=== PATIENT | female | born 1950 | race Two or more races ===

== ENCOUNTER 2024-04-13 06:45 | Inpatient (IN) | payer MEDICARE, OTHER ==
[~2024-04-13] VITALS: Ht 147.3 cm; Wt 75.3 kg
[2024-04-13] MEDS ORDERED: VANCOMYCIN 1000 MG VIAL ONE (06:51)
[2024-04-13] MEDS ORDERED: BUPIVACAINE/EPI PF 0.25% 10 ML VIAL IJ ONE ×2 (06:51→07:27)
[2024-04-13] MEDS ORDERED: FENTANYL CITRATE 250 MCG/5 ML AMPUL ONE (07:46)
[2024-04-13] MEDS ORDERED: MIDAZOLAM HCL 2 MG/2 ML VIAL ONE (07:46)
[2024-04-13] MEDS ORDERED: ROPIVACAINE HCL/PF 0.5% ( 5 MG/ML ) , 20 ML VIAL ONE (09:52)
[2024-04-13] MEDS ORDERED: DEXAMETHASONE SOD PHOSPHATE 10 MG INJ ONE (09:53)
[2024-04-13] MEDS ORDERED: BUPIVACAINE 0.25% 30 ML VIAL ONE (09:53)
[2024-04-13] MEDS ORDERED: PROPOFOL 200 MG/20 ML BOTTLE ONE (10:05)
[2024-04-13] MEDS ORDERED: TRANEXAMIC ACID 1,000 MG/10 ML VIAL ONE (10:29)
[2024-04-13] MEDS ORDERED: HYDROMORPHONE 1 MG/1 ML DISP.SYRIN ONE ×2 (12:23→12:37)
[2024-04-13] MEDS: HYDROMORPHONE 1 MG/1 ML DISP.SYRIN IV PRN (12:27)
[2024-04-13] MEDS ORDERED: ACETAMINOPHEN 500 MG TABLET ONE (12:57)
[2024-04-13] MEDS ORDERED: FENTANYL CITRATE 100 MCG/2 ML AMPUL ONE (12:58)
[2024-04-13] MEDS ORDERED: ONDANSETRON 4 MG/2 ML VIAL ONE (12:59)
[2024-04-13] MEDS: ONDANSETRON 4 MG/2 ML VIAL IV PRN (13:05)
[2024-04-13] MEDS: FENTANYL CITRATE 100 MCG/2 ML AMPUL IV PRN (13:05)
[2024-04-13] MEDS: ACETAMINOPHEN 500 MG TABLET PO ONE (13:06)
[2024-04-13] MEDS ORDERED: ACYC400T19 PO (14:58)
[2024-04-13 14:59] VITALS: BP 121/68; TEMP 98.4; O2SAT 100
[2024-04-13] MEDS: IV D5W-0.45% NS +20 KCL 1,000 ML IV PRN (15:00)
[2024-04-13] MEDS ORDERED: AZEL6DRO5 EACHEYE (15:01)
[2024-04-13] MEDS ORDERED: AZEL137S7 BNOSTRILS (15:01)
[2024-04-13] MEDS ORDERED: ATOR40TA PO (15:01)
[2024-04-13] MEDS ORDERED: ALBU8HFA4 INH (15:01)
[2024-04-13] MEDS ORDERED: BIOT5TAB PO (15:01)
[2024-04-13] MEDS ORDERED: BISO10TA16 PO (15:02)
[2024-04-13] MEDS ORDERED: CETI-232 PO (15:03)
[2024-04-13] MEDS ORDERED: CLOB118S3 TP (15:04)
[2024-04-13] MEDS ORDERED: CYCL5TAB PO (15:06)
[2024-04-13] MEDS ORDERED: CHOL10005 PO (15:09)
[2024-04-13] MEDS ORDERED: FLUT16SP16 NS (15:11)
[2024-04-13] MEDS ORDERED: FLUT1DIS28 IH (15:11)
[2024-04-13] MEDS ORDERED: GABA300C PO (15:15)
[2024-04-13] MEDS ORDERED: ICOS1CAP PO (15:16)
[2024-04-13] MEDS ORDERED: IPRA42SP NS (15:17)
[2024-04-13] MEDS ORDERED: LEVO88TA5 PO (15:21)
[2024-04-13] MEDS ORDERED: MAGN400T26 PO (15:22)
[2024-04-13] MEDS ORDERED: MELA3CAP2 PO (15:23)
[2024-04-13] MEDS ORDERED: NAPR-1009 PO (15:24)
[2024-04-13] MEDS ORDERED: METF-495 PO (15:24)
[2024-04-13] MEDS ORDERED: OLME1TAB34 PO (15:25)
[2024-04-13] MEDS ORDERED: HCTZ PO SCH (16:00)
[2024-04-13] MEDS ORDERED: ONDANSETRON 4 MG/2 ML VIAL IV PRN (16:00)
[2024-04-13] MEDS ORDERED: Medication Not On Formulary EA (Biotin 5 MG) PO SCH (16:00)
[2024-04-13] MEDS ORDERED: AMLODIPINE PO SCH (16:00)
[2024-04-13] MEDS ORDERED: ACETAMINOPHEN 325 MG TABLET PO PRN (16:00)
[2024-04-13] MEDS ORDERED: OLMESARTAN MED PO SCH (16:00)
[2024-04-13] MEDS ORDERED: ALBUTEROL SULFATE 8 GM HFA.AER.AD INH PRN (16:00)
[2024-04-13] MEDS ORDERED: IPRATROPIUM BROMIDE NASAL 15 ML BOTTLE 42 MCG/SPRAY NS PRN (16:00)
[2024-04-13] MEDS ORDERED: MAGNESIUM HYDROXIDE 30 ML LIQUID UDC PO PRN (16:00)
[2024-04-13 16:04] LABS: BASOPHILS # (AUTO) 0.1 K/UL (0.0-0.2); BASOPHILS % (AUTO) 1.2 % (0.0-2.0); EOSINOPHILS # (AUTO) 0.1 K/uL (0.0-0.7); EOSINOPHILS % (AUTO) 1.4 % (0.0-7.0); HEMATOCRIT 39.1 % (31.2-41.9); HEMOGLOBIN 13.2 g/dL (10.9-14.3); LYMPHOCYTES # (AUTO) 2.6 K/uL (0.8-4.8); LYMPHOCYTES % (AUTO) 28.5 % (20.5-51.5); MEAN CORPUSCULAR HEMOGLOBIN 28.3 uug (24.7-32.8); MEAN CORPUSCULAR HGB CONC 34 g/dL (32.3-35.6); MEAN CORPUSCULAR VOLUME 83.9 fL (75.5-95.3); MONOCYTES # (AUTO) 1.1 K/uL (0.1-1.30); MONOCYTES % (AUTO) 12.1 % (0.0-11.0); NEUTROPHILS # (AUTO) 5.2 K/uL (1.8-8.9); NEUTROPHILS % (AUTO) 56.8 % (38.5-71.5); PLATELET COUNT (AUTO) 311 K/uL (179-408); RED BLOOD CELL COUNT(AUTO) 4.66 MIL/uL (3.63-4.92); WHITE BLOOD COUNT (AUTO) 9.2 K/uL (3.8-11.8)
[2024-04-13 16:10] LABS: CALCIUM 9.8 mg/dL (8.5-10.1); CARBON DIOXIDE 26 mmol/L (21-32); CHLORIDE 102 mmol/L (98-107); CREATININE 0.8 mg/dL (0.6-1.3); GLUCOSE 114 mg/dL (74-106); POTASSIUM 4.1 mmol/L (3.5-5.1); SODIUM SERUM 138 mmol/L (136-145); UREA NITROGEN, BLOOD 17 mg/dL (7-18)
[2024-04-13 16:13] LABS: DIFFERENTIAL COMMENT 1
[2024-04-13 16:22] VITALS: O2SAT 99
[2024-04-13] MEDS ORDERED: Icosapent Ethyl (Vascepa) 1 GM) PO SCH (17:00)
[2024-04-13] MEDS ORDERED: FLUTICASONE/SALMETEROL 250/50 INHALER IH SCH (17:00)
[2024-04-13] MEDS ORDERED: METFORMIN XR 500 MG TAB.SR.24H PO SCH (17:00)
[2024-04-13] MEDS: HYDROCODONE/APAP 10-325 MG TABLET PO PRN (17:16)
[2024-04-13] MEDS ORDERED: METF-440 PO (17:43)
[2024-04-13] MEDS: METFORMIN HCL 500 MG TABLET PO SCH (18:00)
[2024-04-13] MEDS ORDERED: ALBUTEROL SULFATE 2.5 MG/3 ML NEBU NEB PRN (18:00)
[2024-04-13] MEDS: MAGNESIUM OXIDE 400 MG TABLET PO SCH (18:00)
[2024-04-13] MEDS: CHOLECALCIFEROL 1,000 UNIT TABLET PO SCH (18:00)
[2024-04-13] MEDS: GABAPENTIN 300 MG CAPSULE PO SCH (18:00)
[2024-04-13] MEDS: FLUTICASONE/VILANTEROL 1 EACH BLST.W.DEV INH SCH (18:32)
[2024-04-13] MEDS: FLUTICASONE PROP NASAL SPRAY 16 GM BOTTLE NS SCH (18:32)
[2024-04-13] MEDS: CEFAZOLIN 1 G in IV DEXTROSE 5% 50 ML IV SCH (18:39)
[2024-04-13 19:47] VITALS: BP 115/57; TEMP 99; O2SAT 99
[2024-04-13] MEDS: ACYCLOVIR 400 MG TABLET PO SCH (21:00)
[2024-04-13] MEDS: CETIRIZINE HCL 10 MG TABLET PO SCH (21:22)
[2024-04-13] MEDS: ATORVASTATIN 40 MG TABLET PO SCH (21:23)
[2024-04-13] MEDS: ACYCLOVIR 200 MG CAPSULE PO SCH (21:23)
[2024-04-13] MEDS: MELATONIN 3 MG TABLET PO SCH (21:23)
[2024-04-13] MEDS: ATENOLOL 50 MG TABLET PO SCH (21:24)
[2024-04-14] MEDS: MORPHINE SULFATE 4 MG/1 ML DISP.SYRIN IV PRN (00:29)
[2024-04-14 02:50] VITALS: O2SAT 99
[2024-04-14 06:43] LABS: HEMATOCRIT 31.4 % (31.2-41.9); HEMOGLOBIN 10.7 g/dL (10.9-14.3); LYMPHOCYTES # (AUTO) 1.3 K/uL (0.8-4.8); LYMPHOCYTES % (AUTO) 8.1 % (20.5-51.5); MEAN CORPUSCULAR HEMOGLOBIN 28.4 uug (24.7-32.8); MEAN CORPUSCULAR HGB CONC 34 g/dL (32.3-35.6); MEAN CORPUSCULAR VOLUME 83.2 fL (75.5-95.3); MONOCYTES % (AUTO) 12.6 % (0.0-11.0); NEUTROPHILS # (AUTO) 12.3 K/uL (1.8-8.9); NEUTROPHILS % (AUTO) 79.3 % (38.5-71.5); PLATELET COUNT (AUTO) 251 K/uL (179-408); RED BLOOD CELL COUNT(AUTO) 3.78 MIL/uL (3.63-4.92); RED CELL DISTRIBUTION WIDTH 13.7 % (12.3-17.7); WHITE BLOOD COUNT (AUTO) 15.5 K/uL (3.8-11.8)
[2024-04-14 06:49] LABS: DIFFERENTIAL COMMENT 1
[2024-04-14] MEDS: LEVOTHYROXINE SODIUM 88 MCG TABLET PO SCH (06:53)
[2024-04-14 07:05] LABS: CALCIUM 8.4 mg/dL (8.5-10.1); CARBON DIOXIDE 28 mmol/L (21-32); CHLORIDE 101 mmol/L (98-107); CREATININE 0.8 mg/dL (0.6-1.3); GLUCOSE 143 mg/dL (74-106); MAGNESIUM 1.8 mg/dL (1.8-2.4); PHOSPHOROUS 3.4 mg/dL (2.5-4.9); SODIUM SERUM 136 mmol/L (136-145); UREA NITROGEN, BLOOD 15 mg/dL (7-18)
[2024-04-14] MEDS: ENOXAPARIN SODIUM 40 MG/0.4 ML DISP.SYRIN SQ SCH (08:13)
[2024-04-14 11:15] VITALS: BP 111/50; TEMP 98.7; O2SAT 98
[2024-04-14] MEDS ORDERED: MORPHINE SULFATE 2 MG/1 ML DISP.SYRIN IV PRN (12:30)
[2024-04-14] MEDS ORDERED: MORPHINE SULFATE 4 MG/1 ML DISP.SYRIN IV PRN (12:45)
[2024-04-14] MEDS ORDERED: ACYC-106 PO (15:47)
[2024-04-14] MEDS ORDERED: ALBU0.63 NEB (15:51)
[2024-04-14] MEDS ORDERED: FLUT1BLS15 INH (16:21)
[2024-04-14] MEDS ORDERED: BIOT5CAP2 PO (16:21)
[2024-04-14] MEDS ORDERED: IPRA0.2S48 NEB (16:21)
[2024-04-14] MEDS ORDERED: [UNRECOGNIZED DRUG - CODE] TP (16:21)
[2024-04-14] MEDS ORDERED: MAGN400T52 PO (16:21)
[2024-04-14] MEDS ORDERED: NAPR-1069 PO (16:21)
[2024-04-14] MEDS ORDERED: FLUT16SP NS (16:21)
[2024-04-14] MEDS ORDERED: CYCL5TAB PO (16:21)
[2024-04-14] MEDS ORDERED: CETI-90 PO (16:21)
== END 2024-04-14 14:42 | DRG 470 ==
LOC: DS 06:45 → MEDSURG3 13:57
PROVIDERS: ADMIT Nurse Practitioner Acute Care; ATTEND Nurse Practitioner Acute Care
PROC: 0SRD069 Replacement of Left Knee Joint with Oxidized Zirconium on Polyethylene Synthetic Substitute, Cemented, Open Approach (ICD-10-PCS; principal; 2024-04-13)
DX: M17.12 Unilateral primary osteoarthritis, left knee (principal); D68.59 Other primary thrombophilia; E66.01 Morbid (severe) obesity due to excess calories; Z68.34 Body mass index [BMI] 34.0-34.9, adult; I10 Essential (primary) hypertension; E11.9 Type 2 diabetes mellitus without complications; Z79.84 Long term (current) use of oral hypoglycemic drugs; Z79.899 Other long term (current) drug therapy; D72.829 Elevated white blood cell count, unspecified
CPT/HCPCS: 36415; 83735; 84100; 85025; 85730; A4663; A9150; G0378; J0690; J1100; J1171; J1650; J1885; J2250; J2270; J2405; J2795; J3010; J3370; J3490; J3535; J7120

== ENCOUNTER 2024-04-14 11:40 | Inpatient (IN) | payer MEDICARE, OTHER ==
[~2024-04-14] VITALS: Ht 147.3 cm; Wt 75.3 kg
[~2024-04-14 11:40] MED LIST: ACYC400T19 PO; ALBU8HFA4 INH; ATOR40TA PO; AZEL137S7 BNOSTRILS; AZEL6DRO5 EACHEYE; BIOT5TAB PO; BISO10TA16 PO; CETI-232 PO; CHOL10005 PO; CLOB118S3 TP; CYCL5TAB PO; FLUT16SP16 NS; FLUT1DIS28 IH; GABA300C PO; ICOS1CAP PO; IPRA42SP NS; LEVO88TA5 PO; MAGN400T26 PO; MELA3CAP2 PO; METF-440 PO; NAPR-1009 PO; OLME1TAB34 PO
[2024-04-14 11:41] VITALS: BP 111/50
[2024-04-14 12:51] VITALS: BP 111/50
[2024-04-14] MEDS ORDERED: ACYC-106 PO (15:47)
[2024-04-14] MEDS ORDERED: ALBU0.63 NEB (15:51)
[2024-04-14] MEDS ORDERED: MAGN400T52 PO (16:21)
[2024-04-14] MEDS ORDERED: CETI-90 PO (16:21)
[2024-04-14] MEDS ORDERED: BIOT5CAP2 PO (16:21)
[2024-04-14] MEDS ORDERED: NAPR-1069 PO (16:21)
[2024-04-14] MEDS ORDERED: [UNRECOGNIZED DRUG - CODE] TP (16:21)
[2024-04-14] MEDS ORDERED: IPRA0.2S48 NEB (16:21)
[2024-04-14] MEDS ORDERED: CYCL5TAB PO (16:21)
[2024-04-14] MEDS ORDERED: FLUT1BLS15 INH (16:21)
[2024-04-14] MEDS ORDERED: FLUT16SP NS (16:21)
[2024-04-14 16:27] VITALS: BP 110/61; TEMP 97.7; O2SAT 96
[2024-04-14] MEDS: HYDROCODONE/APAP 10-325 MG TABLET PO PRN (18:26)
[2024-04-14] MEDS ORDERED: CYCLOBENZAPRINE HCL 10 MG TABLET PO PRN (19:45)
[2024-04-14 20:00] VITALS: BP 107/41; TEMP 99.6; O2SAT 96
[2024-04-14] MEDS ORDERED: ACYCLOVIR 200 MG CAPSULE ONE (20:13)
[2024-04-14] MEDS: ENOXAPARIN SODIUM 40 MG/0.4 ML DISP.SYRIN SQ SCH (20:16)
[2024-04-14] MEDS: DOCUSATE SODIUM 100 MG CAPSULE PO SCH (20:18)
[2024-04-14] MEDS: MELATONIN 3 MG TABLET PO SCH (20:19)
[2024-04-14] MEDS: MAGNESIUM OXIDE 400 MG TABLET PO SCH (20:19)
[2024-04-14] MEDS ORDERED: ACYCLOVIR 400 MG TABLET PO SCH (21:00)
[2024-04-14] MEDS: GABAPENTIN 300 MG CAPSULE PO SCH (21:16)
[2024-04-14] MEDS: ACYCLOVIR 200 MG CAPSULE PO SCH (21:16)
[2024-04-15 06:00] VITALS: BP 120/53; TEMP 98.7; O2SAT 94
[2024-04-15] MEDS: PANTOPRAZOLE SODIUM 40 MG TABLET.DR PO SCH (06:18)
[2024-04-15] MEDS ORDERED: LEVOTHYROXINE SODIUM 88 MCG TABLET PO SCH (07:30)
[2024-04-15 07:33] LABS: BASOPHILS # (AUTO) 0.1 K/UL (0.0-0.2); BASOPHILS % (AUTO) 0.5 % (0.0-2.0); EOSINOPHILS % (AUTO) 0.1 % (0.0-7.0); HEMATOCRIT 32.8 % (31.2-41.9); HEMOGLOBIN 10.8 g/dL (10.9-14.3); LYMPHOCYTES % (AUTO) 16.9 % (20.5-51.5); MEAN CORPUSCULAR HEMOGLOBIN 27.9 uug (24.7-32.8); MEAN CORPUSCULAR HGB CONC 33 g/dL (32.3-35.6); MEAN CORPUSCULAR VOLUME 84.4 fL (75.5-95.3); MONOCYTES # (AUTO) 2.1 K/uL (0.1-1.30); MONOCYTES % (AUTO) 17.6 % (0.0-11.0); NEUTROPHILS # (AUTO) 7.7 K/uL (1.8-8.9); NEUTROPHILS % (AUTO) 64.9 % (38.5-71.5); PLATELET COUNT (AUTO) 222 K/uL (179-408); RED BLOOD CELL COUNT(AUTO) 3.88 MIL/uL (3.63-4.92); WHITE BLOOD COUNT (AUTO) 11.9 K/uL (3.8-11.8)
[2024-04-15 07:53] LABS: IRON, SERUM 17 ug/dL (50-175)
[2024-04-15 07:55] LABS: DIFFERENTIAL COMMENT 1
[2024-04-15 08:00] VITALS: BP 118/47; TEMP 98.9; O2SAT 94
[2024-04-15 08:17] LABS: ALANINE AMINOTRANSFERASE 19 U/L (14-59); ALBUMIN 2.9 g/dL (3.4-5.0); ALKALINE PHOSPHATASE 56 U/L (50-136); ASPARTATE AMINOTRANSFERASE 13 U/L (15-37); BILIRUBIN,TOTAL 0.9 mg/dL (0.2-1.0); CALCIUM 8.4 mg/dL (8.5-10.1); CARBON DIOXIDE 29 mmol/L (21-32); CHLORIDE 99 mmol/L (98-107); CHOLESTEROL 111 mg/dL (<200); CREATININE 0.7 mg/dL (0.6-1.3); GLUCOSE 123 mg/dL (74-106); HDL CHOLESTEROL 50 mg/dL (40-60); PHOSPHOROUS 3.1 mg/dL (2.5-4.9); POTASSIUM 4.7 mmol/L (3.5-5.1); SODIUM SERUM 133 mmol/L (136-145); TOTAL PROTEIN, SERUM 6.6 g/dL (6.4-8.2); TRIGLYCERIDES 139 MG/DL (30-150); UREA NITROGEN, BLOOD 11 mg/dL (7-18)
[2024-04-15] MEDS ORDERED: BIOTIN PO SCH (09:00)
[2024-04-15] MEDS ORDERED: Icosapent Ethyl (Vascepa) 1 GM) PO SCH (09:00)
[2024-04-15] MEDS: CETIRIZINE HCL 10 MG TABLET PO SCH (09:09)
[2024-04-15] MEDS: CHOLECALCIFEROL 1,000 UNIT TABLET PO SCH (09:10)
[2024-04-15 09:14] LABS: THYROID STIMULATING HORMONE 1.842 mIU/mL (0.358-3.740)
[2024-04-15] MEDS: METFORMIN HCL 500 MG TABLET PO SCH (09:15)
[2024-04-15] MEDS: FLUTICASONE PROP NASAL SPRAY 16 GM BOTTLE NS SCH (10:00)
[2024-04-15] MEDS: FLUTICASONE/VILANTEROL 1 EACH BLST.W.DEV INH SCH (10:01)
[2024-04-15 14:27] LABS: BAND % (MANUAL) 4 % (0-10); LYMPHOCYTES % (MANUAL) 16 % (20-40); MONOCYTES % (MANUAL) 18 % (2-10); NEUTROPHILS % (MANUAL) 59 % (42-75)
[2024-04-15 14:28] LABS: ANISOCYTOSIS 1+; PLATELET ESTIMATE ADEQUATE; REACTIVE LYMPHOCYTES 3 % (0-0)
[2024-04-15 17:00] VITALS: BP 122/76; TEMP 100; O2SAT 96
[2024-04-15] MEDS: ACETAMINOPHEN 325 MG TABLET PO PRN (17:17)
[2024-04-15] MEDS: OMEGA-3 FATTY ACIDS/FISH OIL CAPSULE PO SCH (17:17)
[2024-04-15 18:54] VITALS: TEMP 98.8
[2024-04-15 20:04] VITALS: BP 126/48; TEMP 99.6; O2SAT 95
[2024-04-15] MEDS: ATENOLOL 50 MG TABLET PO SCH (20:24)
[2024-04-15] MEDS: MAGNESIUM HYDROXIDE 30 ML LIQUID UDC PO PRN (20:31)
[2024-04-15 22:10] VITALS: TEMP 97.9
[2024-04-16 05:30] VITALS: BP 100/41; TEMP 98.8; O2SAT 95
[2024-04-16] MEDS: LEVOTHYROXINE SODIUM 88 MCG TABLET PO SCH (06:55)
[2024-04-16 07:45] VITALS: BP 99/42; TEMP 98.4; O2SAT 95
[2024-04-16 08:28] LABS: BASOPHILS # (AUTO) 0.1 K/UL (0.0-0.2); BASOPHILS % (AUTO) 0.5 % (0.0-2.0); EOSINOPHILS # (AUTO) 0.1 K/uL (0.0-0.7); EOSINOPHILS % (AUTO) 0.6 % (0.0-7.0); HEMATOCRIT 31.5 % (31.2-41.9); HEMOGLOBIN 10.5 g/dL (10.9-14.3); LYMPHOCYTES # (AUTO) 1.7 K/uL (0.8-4.8); LYMPHOCYTES % (AUTO) 15.2 % (20.5-51.5); MEAN CORPUSCULAR HEMOGLOBIN 28.1 uug (24.7-32.8); MEAN CORPUSCULAR HGB CONC 33 g/dL (32.3-35.6); MEAN CORPUSCULAR VOLUME 84.3 fL (75.5-95.3); MONOCYTES # (AUTO) 1.3 K/uL (0.1-1.30); MONOCYTES % (AUTO) 11.4 % (0.0-11.0); NEUTROPHILS # (AUTO) 8.3 K/uL (1.8-8.9); NEUTROPHILS % (AUTO) 72.3 % (38.5-71.5); PLATELET COUNT (AUTO) 230 K/uL (179-408); RED BLOOD CELL COUNT(AUTO) 3.74 MIL/uL (3.63-4.92); RED CELL DISTRIBUTION WIDTH 13.8 % (12.3-17.7); WHITE BLOOD COUNT (AUTO) 11.5 K/uL (3.8-11.8)
[2024-04-16 08:33] LABS: DIFFERENTIAL COMMENT 1
[2024-04-16 08:39] LABS: CALCIUM 8.5 mg/dL (8.5-10.1); CARBON DIOXIDE 27 mmol/L (21-32); CHLORIDE 97 mmol/L (98-107); CREATININE 0.7 mg/dL (0.6-1.3); GLUCOSE 149 mg/dL (74-106); POTASSIUM 4.2 mmol/L (3.5-5.1); SODIUM SERUM 131 mmol/L (136-145); UREA NITROGEN, BLOOD 13 mg/dL (7-18)
[2024-04-16 16:06] VITALS: BP 128/43; TEMP 98.4; O2SAT 99
[2024-04-16] MEDS: ARGININE/GLUTAMINE/CALCIUM BMB 1 EACH POWD.PACK PO SCH (17:12)
[2024-04-16 20:00] VITALS: BP 124/46; TEMP 99.3; O2SAT 95
[2024-04-17 06:00] VITALS: BP 113/52; TEMP 98.6; O2SAT 95
[2024-04-17 08:00] VITALS: BP 106/44; TEMP 99.2; O2SAT 94
[2024-04-17 16:41] VITALS: BP 114/45; TEMP 99; O2SAT 97
[2024-04-17 21:04] VITALS: BP 114/42; TEMP 100.2; O2SAT 93
[2024-04-17] MEDS: ONDANSETRON HCL 4 MG TABLET PO PRN (21:39)
[2024-04-17 23:20] LABS: *BILIRUBIN,URIN NEGATIVE (NEGATIVE); *BLOOD, URINE TRACE (NEGATIVE); *CLARITY,URINE CLEAR (CLEAR); *COLOR,URINE YELLOW (YELLOW); *KETONES,URINE NEGATIVE (NEGATIVE); *PROTEIN,URINE NEGATIVE (NEGATIVE); *UROBILINOGEN,URINE 0.2 E.U./dl (NORMAL); LEUKOCYTE ESTERASE ,URINE TRACE (NEGATIVE); NITRITE, URINE NEGATIVE (NEGATIVE); UGLUCOSE NEGATIVE (NEGATIVE)
[2024-04-17 23:40] VITALS: TEMP 98.6
[2024-04-17 23:49] LABS: BACTERIA,URINE FEW /HPF (NONE SEEN); RBC,URINE 0-3 /HPF (0-3); SQUAMOUS EPITHELIAL CELL,UR MODERATE /HPF (NONE SEEN)
[2024-04-18 06:39] VITALS: BP 148/46; TEMP 99.1; O2SAT 94
[2024-04-18 07:45] VITALS: BP 113/47; TEMP 98.7; O2SAT 97
[2024-04-18] MEDS: CEphaleXIN 250 MG CAPSULE PO SCH (11:24)
[2024-04-18 16:08] VITALS: BP 114/60; TEMP 98.9; O2SAT 98
[2024-04-18] MEDS: CYANOCOBALAMIN 1000 MCG/ML VIAL IM SCH (21:29)
[2024-04-18 22:23] VITALS: BP 131/56; TEMP 98.4; O2SAT 99
[2024-04-19 06:25] VITALS: BP 116/50; TEMP 98.2; O2SAT 97
[2024-04-19 08:00] VITALS: BP 105/80; TEMP 97; O2SAT 97
[2024-04-19 16:00] VITALS: BP 111/57; TEMP 97.6; O2SAT 97
[2024-04-19 20:00] VITALS: BP 125/98; TEMP 97.9; O2SAT 97
[2024-04-20 06:00] VITALS: BP 125/43; TEMP 98; O2SAT 97
[2024-04-20 08:00] VITALS: BP 122/48; TEMP 97.2; O2SAT 97
[2024-04-20 16:00] VITALS: BP 127/49; TEMP 97.8; O2SAT 97
[2024-04-20 21:25] VITALS: BP 119/56; TEMP 99.4; O2SAT 96
[2024-04-21 06:58] VITALS: BP 139/50; TEMP 98.3; O2SAT 94
[2024-04-21 08:00] VITALS: BP 120/33; TEMP 98.5; O2SAT 97
[2024-04-21 17:00] VITALS: BP 124/55; TEMP 98.6; O2SAT 96
[2024-04-21 20:56] VITALS: BP 125/78; TEMP 98.5; O2SAT 97
[2024-04-22 05:30] VITALS: BP 124/54; TEMP 98.4; O2SAT 95
[2024-04-22 08:00] VITALS: BP 130/45; TEMP 98.2; O2SAT 87; O2SAT 97
[2024-04-22 16:19] VITALS: BP 123/56; TEMP 97.9; O2SAT 99
[2024-04-22 19:57] VITALS: BP 117/39; TEMP 97.8; O2SAT 98
[2024-04-23 06:00] VITALS: BP 139/66; TEMP 98; O2SAT 97
[2024-04-23 08:00] VITALS: BP 136/46; TEMP 97.2; O2SAT 97
[2024-04-23 15:59] VITALS: BP 123/52; TEMP 98; O2SAT 97
[2024-04-23 20:17] VITALS: BP 116/53; TEMP 98.3; O2SAT 94
[2024-04-24 04:27] VITALS: BP 120/49; TEMP 98; O2SAT 98
[2024-04-24 07:47] VITALS: BP 104/59; TEMP 98.1; O2SAT 96
[2024-04-24 08:27] LABS: BASOPHILS # (AUTO) 0.1 K/UL (0.0-0.2); BASOPHILS % (AUTO) 0.7 % (0.0-2.0); EOSINOPHILS # (AUTO) 0.5 K/uL (0.0-0.7); EOSINOPHILS % (AUTO) 4.9 % (0.0-7.0); HEMOGLOBIN 10.2 g/dL (10.9-14.3); LYMPHOCYTES # (AUTO) 1.7 K/uL (0.8-4.8); LYMPHOCYTES % (AUTO) 16.9 % (20.5-51.5); MEAN CORPUSCULAR HEMOGLOBIN 29.2 uug (24.7-32.8); MEAN CORPUSCULAR HGB CONC 35 g/dL (32.3-35.6); MEAN CORPUSCULAR VOLUME 82.5 fL (75.5-95.3); MONOCYTES # (AUTO) 0.9 K/uL (0.1-1.30); MONOCYTES % (AUTO) 9.3 % (0.0-11.0); NEUTROPHILS # (AUTO) 6.7 K/uL (1.8-8.9); NEUTROPHILS % (AUTO) 68.2 % (38.5-71.5); PLATELET COUNT (AUTO) 527 K/uL (179-408); RED BLOOD CELL COUNT(AUTO) 3.51 MIL/uL (3.63-4.92); RED CELL DISTRIBUTION WIDTH 13.7 % (12.3-17.7); WHITE BLOOD COUNT (AUTO) 9.9 K/uL (3.8-11.8)
[2024-04-24 08:34] LABS: ALANINE AMINOTRANSFERASE 22 U/L (14-59); ALBUMIN 2.7 g/dL (3.4-5.0); ALKALINE PHOSPHATASE 67 U/L (50-136); ASPARTATE AMINOTRANSFERASE 12 U/L (15-37); BILIRUBIN,TOTAL 0.6 mg/dL (0.2-1.0); CALCIUM 8.5 mg/dL (8.5-10.1); CARBON DIOXIDE 29 mmol/L (21-32); CHLORIDE 99 mmol/L (98-107); CREATININE 0.6 mg/dL (0.6-1.3); GLUCOSE 119 mg/dL (74-106); POTASSIUM 4.1 mmol/L (3.5-5.1); SODIUM SERUM 136 mmol/L (136-145); TOTAL PROTEIN, SERUM 6.9 g/dL (6.4-8.2); UREA NITROGEN, BLOOD 13 mg/dL (7-18)
[2024-04-24 08:35] LABS: DIFFERENTIAL COMMENT 1
[2024-04-24 15:25] VITALS: BP 141/64; TEMP 98.1; O2SAT 100
[2024-04-24 16:34] VITALS: BP 126/60; TEMP 98.2; O2SAT 97
[2024-04-24 20:10] VITALS: BP 122/51; TEMP 97.9; O2SAT 100
[2024-04-25 04:50] VITALS: BP 123/54; TEMP 97.9; O2SAT 95
[2024-04-25 07:47] VITALS: BP 122/56; TEMP 98.2; O2SAT 95
[2024-04-25 16:03] VITALS: BP 120/50; TEMP 98.2; O2SAT 100
[2024-04-25 20:08] VITALS: BP 159/57; TEMP 98.6; O2SAT 98
[2024-04-26 06:08] VITALS: BP 118/57; TEMP 97.8; O2SAT 96
[2024-04-26 08:00] VITALS: BP 141/64; TEMP 97.7; O2SAT 97
[2024-04-26 15:58] VITALS: BP 103/55; TEMP 97.3; O2SAT 98
[2024-04-26 20:00] VITALS: BP 141/60; TEMP 97.9; O2SAT 99
[2024-04-27 06:43] VITALS: BP 110/54; TEMP 98.5; O2SAT 99
[2024-04-27 08:00] VITALS: BP 114/42; TEMP 98; O2SAT 96
== END 2024-04-27 13:00 | disposition home health service (06) | DRG 560 ==
LOC: MERGE 15:06
PROVIDERS: ADMIT Physical Medicine & Rehabilitation Pain Medicine; ATTEND Physical Medicine & Rehabilitation Pain Medicine
DX: Z47.1 Aftercare following joint replacement surgery (principal); D68.59 Other primary thrombophilia; E87.1 Hypo-osmolality and hyponatremia; N39.0 Urinary tract infection, site not specified; Z96.652 Presence of left artificial knee joint; E66.01 Morbid (severe) obesity due to excess calories; E11.9 Type 2 diabetes mellitus without complications; I10 Essential (primary) hypertension; E03.9 Hypothyroidism, unspecified; B96.89 Other specified bacterial agents as the cause of diseases classified elsewhere; T50.2X5A Adverse effect of carbonic-anhydrase inhibitors, benzothiadiazides and other diuretics, initial encounter; Y92.9 Unspecified place or not applicable
CPT/HCPCS: 36415; 71045; 83550; 83735; 84100; 84443; 85025; 85610; 87086; 97535-GO-CO; J1650; J3420; J3535; Q0162